=== PATIENT | male | born 1975 | race Caucasian/White ===

== ENCOUNTER → 2021-08-30 | Outpatient (REF) | LOC: M EMP 10:10 | PROVIDERS: ATTEND Family Medicine | DX: Z11.52 Encounter for screening for COVID-19 (principal) ==

== ENCOUNTER → 2023-01-26 | Outpatient (REF) | LOC: M LABSMTC 08:46 | PROVIDERS: ATTEND Family Medicine | DX: Z11.52 Encounter for screening for COVID-19 (principal) ==

== ENCOUNTER → 2024-01-21 | Outpatient (REF) | payer BC ==
[2024-01-21 17:25] LABS: HEMATOCRIT 48.1 % (42.0-52.0); HEMOGLOBIN 15.5 g/dl (13.5-17.5); MEAN CORPUSCULAR HEMOGLOBIN 30.8 pg (27.0-33.0); MEAN CORPUSCULAR HGB CONC 32.2 g/dl (32.0-36.5); MEAN CORPUSCULAR VOLUME 95.4 fl (80.0-96.0); PLATELET COUNT, AUTOMATED 257 10^3/uL (150-450); RED BLOOD COUNT 5.04 10^6/uL (4.30-6.10); WHITE BLOOD COUNT 5.6 10^3/uL (4.0-10.0)
[2024-01-21 17:29] LABS: HEMOGLOBIN A1c 5.1 % (4.0-6.0)
[2024-01-21 17:53] LABS: ALBUMIN 4.5 G/DL (3.2-5.2); ALKALINE PHOSPHATASE 100 U/L (46-116); ALT/SGPT 25 U/L (7.0-40); AST/SGOT 23 U/L (<34); BILIRUBIN,TOTAL 0.3 MG/DL (0.3-1.2); BLOOD UREA NITROGEN 11 MG/DL (9-23); CALCIUM LEVEL 10.9 MG/DL (8.5-10.1); CARBON DIOXIDE LEVEL 28 MMOL/L (20-31); CHLORIDE LEVEL 106 MMOL/L (98-107); CHOLESTEROL LEVEL 172 MG/DL (<200); CHOLESTEROL RISK RATIO 3.22 (<5); CREATININE FOR GFR 0.91 MG/DL (0.70-1.30); FREE T4 0.97 NG/DL (0.89-1.76); GLOMERULAR FILTRATION RATE > 60.0 (>60); GLUCOSE, FASTING 95 MG/DL (60-100); HDL CHOLESTEROL 53.4 MG/DL (>40); LDL CHOLESTEROL 105.6 MG/DL (<100); NON-HDL-C 118.6 MG/DL; POTASSIUM SERUM 4.7 MMOL/L (3.5-5.1); SODIUM LEVEL 140 MMOL/L (136-145); THYROID STIMULATING HORMONE 1.436 uIU/ML (0.55-4.78); TOTAL PROTEIN 7.3 G/DL (5.7-8.2); TRIGLYCERIDES LEVEL 65 MG/DL (<150)
== END ==
LOC: M SFHCADAM 12:05
PROVIDERS: ATTEND Family Medicine
DX: Z13.220 Encounter for screening for lipoid disorders (principal); Z13.1 Encounter for screening for diabetes mellitus; R63.5 Abnormal weight gain; R03.0 Elevated blood-pressure reading, without diagnosis of hypertension

== ENCOUNTER 2025-01-19 12:56 | Day surgery (SDC) | payer BC ==
[~2025-01-19] VITALS: Ht 170.2 cm; Wt 78.0 kg
[2025-01-19] MEDS ORDERED: LR 1,000 ML IV SCH ×2 (13:00→17:15)
[2025-01-19] MEDS: ACETAMINOPHEN 325 MG TAB PO ONE (14:50)
[2025-01-19] MEDS: HEPARIN SOD (PORCINE) 5000UNITS/ML 1ML VIAL/SYRINGE SQ ONE (16:00)
[2025-01-19] MEDS: ceFAZolin SOD 2 GM in IV 1 EA IV ONE (16:01)
[2025-01-19] MEDS ORDERED: KETOROLAC 60MG 2ML VIAL As Ordered ONE (16:04)
[2025-01-19] MEDS ORDERED: propofoL 200 MG/20 ML VIAL As Ordered ONE (16:04)
[2025-01-19] MEDS ORDERED: ONDANSETRON 4MG 2ML VIAL As Ordered ONE (16:04)
[2025-01-19] MEDS ORDERED: LIDOCAINE 2% 100MG/5ML SDV (FOR ANES.) As Ordered ONE (16:04)
[2025-01-19] MEDS ORDERED: fentaNYL 250 MCG/5 ML INJECTION As Ordered ONE (16:04)
[2025-01-19] MEDS ORDERED: MIDAZOLAM INJ 2MG/2ML VIAL As Ordered ONE (16:04)
[2025-01-19] MEDS ORDERED: ACETAMINOPHEN 1000MG/100ML IV BAG As Ordered ONE (16:04)
[2025-01-19] MEDS ORDERED: ROCURONIUM BROMIDE 50MG/5ML VIAL As Ordered ONE (16:04)
[2025-01-19] MEDS ORDERED: GLYCOPYRROLATE INJ 0.2 MG/ML 2 ML VIAL As Ordered ONE (16:11)
[2025-01-19] MEDS ORDERED: HYDROMORPHONE HCL 0.5 MG/ 0.5 ML SYRINGE IV PRN (17:15)
[2025-01-19] MEDS ORDERED: ONDANSETRON 4MG 2ML VIAL IV PRN (17:15)
[2025-01-19] MEDS ORDERED: fentaNYL 100 MCG/2 ML INJECTION IV PRN (17:15)
[2025-01-19] MEDS ORDERED: oxyCODONE 5MG TAB PO PRN (17:15)
[2025-01-19 18:15] VITALS: BP 152/79; TEMP 98.3; O2SAT 97
== END 2025-01-19 18:40 | disposition home or self-care (01) ==
LOC: M SDC 12:56
PROVIDERS: ATTEND Surgery
DX: K40.90 Unilateral inguinal hernia, without obstruction or gangrene, not specified as recurrent (principal)
CPT/HCPCS: 49650; C1781; J0131; J0665; J0690; J1100; J1596; J1885; J2250; J2405; J3010; S2900

== ENCOUNTER → 2025-03-30 | Day surgery (SDC) | payer BC ==
[~2025-03-30] VITALS: Ht 170.2 cm; Wt 79.8 kg
[~2025-03-30] MED LIST: LIDOCAINE 2% 100MG/5ML SDV (FOR ANES.) As Ordered ONE; propofoL 200 MG/20 ML VIAL As Ordered ONE
[2025-03-30 11:44] VITALS: TEMP 97.2
[2025-03-30 12:03] VITALS: BP 135/81; O2SAT 98
== END | disposition home or self-care (01) ==
LOC: M OPP 09:55
PROVIDERS: ATTEND Surgery
DX: Z80.0 Family history of malignant neoplasm of digestive organs (principal); K57.30 Diverticulosis of large intestine without perforation or abscess without bleeding